=== PATIENT | female | born 1995 | race Caucasian/White ===

== ENCOUNTER → 2017-01-03 | Outpatient (CLI) | payer BC ==
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
== END | disposition home or self-care (01) ==
LOC: KCIC US 13:52
PROVIDERS: ATTEND Obstetrics & Gynecology
DX: N63.10 Unspecified lump in the right breast, unspecified quadrant (principal); N60.01 Solitary cyst of right breast
CPT/HCPCS: 76641

== ENCOUNTER → 2019-03-24 | Outpatient (CLI) | payer BC ==
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
== END | disposition home or self-care (01) ==
LOC: KCIC US 12:38
PROVIDERS: ATTEND Nurse Practitioner Women's Health
DX: N64.89 Other specified disorders of breast (principal)
CPT/HCPCS: 76641